=== PATIENT | male | born 1955 | race Caucasian/White ===

== ENCOUNTER 2018-05-28 12:40 | Emergency (ER) | payer SELFPAY ==
--- NOTE | 2018-05-28 14:01 | RAD ---
RADIOGRAPH LEFT ANKLE 3 VIEWS: DATE: 05/28/2018. HISTORY: A 62-year-old male with left ankle pain. FINDINGS: No fracture or dislocation. Mild DJD. Congruent ankle mortise. Joint effusion versus soft tissue s welling. IMPRESSION: 1. Joint effusion versus soft tissue swelling/contusion. 2. No fracture. POS: [facility]
[2018-05-28] MEDS ORDERED: Ketorolac Tromethamine 30 MG/ML VIAL ONE (14:36)
== END 2018-05-28 15:00 | disposition home or self-care (01) ==
LOC: ERS 12:40
DX: M25.572 Pain in left ankle and joints of left foot (principal)
CPT/HCPCS: 96372; J1885